=== PATIENT | female | born 1980 | race Caucasian/White ===

== ENCOUNTER 2017-03-25 19:19 | Emergency (ER) | payer MEDICAID ==
--- NOTE | 2017-03-25 21:01 | EDM.PDOCBH ---
ED HPI GENERAL MEDICAL PROBLEM - General Chief Complaint: Behavioral/Psych Stated Complaint: MENTAL CHECK Time Seen by Provider: 03/25/17 19:51 Source of Information: Reports: Patient History Limitations: Reports: No Limitations - History of Present Illness INITIAL COMMENTS - FREE TEXT/NARRATIVE: Patient is a 36-year-old female presents ED for mental health evaluation. Patient has been treated by Dr. chambers for depression, anxiety, PTSD, and mood disorders. Patient states they're currently adjusting her medications and she's feeling overwhelmed with anxiety, sadness, and depression. Patient states she feels like giving up on life. She has alot of recent stress in her life including: loss of job, evicted from her residence, and poor family support. She denies any suicidal ideations. - Related Data Allergies Allergy/AdvReac Type Severity Reaction Status Date / Time Penicillins Allergy Severe Rash Verified 03/25/17 19:31 cefazolin sodium [From Anc] Allergy Rash Verified 03/25/17 19:31 Home Meds: Home Meds Albuterol Sulfate 0.63 mg IH ASDIRECTED PRN 02/22/14 [History] Amitriptyline [Elavil] 50 mg PO BEDTIME 02/22/14 [History] Montelukast [Singulair] 10 mg PO DAILY 02/22/14 [History] levETIRAcetam [Keppra] 1,000 mg PO DAILY 09/10/14 [History] ClonazePAM [KlonoPIN] 1 tab PO TID PRN 04/15/16 [History] Mometasone/Formoterol [Dulera 100-5 MCG] 2 puff IH BIDRT 07/03/16 [History] Vortioxetine Hydrobromide [Brintellix] 10 mg PO DAILY 03/25/17 [History] levETIRAcetam [Keppra] 1,500 mg PO BEDTIME 03/25/17 [History] Past Medical History HEENT History: Reports: Allergic Rhinitis Respiratory History: Reports: Asthma Gastrointestinal History: Reports: Cholelithiasis 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: Neurological History: Reports: Migraines, Seizure Psychiatric History: Reports: Anxiety, Depression, Mood Swings, PTSD Hematologic History: Reports: Blood Transfusion(s) - Infectious Disease History Infectious Disease History: Reports: Chicken Pox - Past Surgical History GI Surgical History: Reports: Cholecystectomy Female Surgical History: Reports: Tubal Ligation, Other (See Below) Other Female Surgeries/Procedures: IUD placement (mirena) Social & Family History - Family History Family Medical History: Noncontributory - Tobacco Use Smoking Status *Q: Former Smoker Years of Tobacco use: 14 Used Tobacco, but Quit: No Month Tobacco Last Used: 5 YEARS AGO Second Hand Smoke Exposure: No - Caffeine Use Caffeine Use: Reports: Soda - Alcohol Use Days Per Week of Alcohol Use: 0 Number of Drinks Per Day: 0 Total Drinks Per Week: 0 - Recreational Drug Use Recreational Drug Use: Yes Drug Use in Last 12 Months: No Recreational Drug Type: Reports: Marijuana/Hashish Other Recreational Drug Type: used marijuana over a year ago, not recent Recreational Drug Use Frequency: Not Used In Over 6 Months ED ROS GENERAL - Review of Systems Review Of Systems: See Below Constitutional: Reports: No Symptoms Respiratory: Reports: No Symptoms Cardiovascular: Reports: No Symptoms GI/Abdominal: Reports: No Symptoms Neurological: Reports: Headache Psychiatric: Reports: Anxiety, Depression. Denies: Hallucinations, Homicidal Ideation, Mood Lability, Suicidal Ideation ED EXAM, BEHAVIORAL HEALTH - Physical Exam Exam: See Below Exam Limited By: No Limitations General Appearance: Alert, WD/WN, Anxious, Other (Tearful) Ears: Hearing Grossly Normal Nose: Normal Inspection Throat/Mouth: Normal Voice, No Airway Compromise Neck: Normal Inspection, Supple Respiratory/Chest: No Respiratory Distress, No Accessory Muscle Use Cardiovascular: Normal Peripheral Pulses, Regular Rate, Rhythm Extremities: Normal Inspection Neurological: Alert, Normal Mood/Affect, CN II-XII Intact, Normal Cognition, No Motor/Sensory Deficits, Oriented x 3 Psychiatric: Alert, Normal Affect, Normal Cognition, Oriented, Depressed Mood, Tearful. No: Agitated, Homicidal Thoughts, Congregation Delusions, Suicidal Plan, Suicidal Thoughts, Tangential Thoughts, Auditory Hallucinations, Visual Hallucinations, Grandiose Thoughts, Pressured Speech, Paranoid Thoughts COURSE, BEHAVIORAL HEALTH COMP - Course Vital Signs: Last Vital Signs Temp 97.8 F 03/25/17 19:28 Pulse 79 03/25/17 19:28 Resp 18 03/25/17 19:28 BP 147/91 H 03/25/17 19:28 Pulse Ox 98 03/25/17 19:28 Re-Assessment/Re-Exam: Spoke with Dr. Schwab. He agreed coming off the Effexor and starting the new antidepressant along with decreasing her clonazepam to be a possible reason of her worsening symptoms. In addition to all the external issues taken place including: Loss of job, poor family support, nobody to talk to, and eviction. Suggested while decreasing the Effexor to the new antidepressant would hold off on decrease in her Klonopin dosage. Suggest tapering back this process significantly to decrease any discontinuation syndrome that may arise. Patient agrees with this and will continue with stopping the Effexor and continue taking the Brintellix as prescribed. States she takes of her medications at HS so that she can be functional during the day. I told her to stop taking the Klonopin all at once in the evening and take all her medications as she is suppose too. She understands this and agrees. Departure - Departure Time of Disposition: 22:02 Disposition: Home, Self-Care 01 Condition: Good Clinical Impression: Depressive disorder, Anxiety - Discharge Information Instructions: Dysphoria Referrals: Rachna Guzmán NP [Primary Care Provider] - Best Schwab MD [Physician] - Bronwyn Matthews NP [Nurse Practitioner] - Forms: ED Department Discharge Additional Instructions: Take all your home medications as prescribed. Follow-up with your PCP tomorrow morning as scheduled. Make an appt with Dr. Schwab or Lu Hitchcock who will see you in their clinic for a second opinion if you wish. Refrain from smoking marijuana. Do not utilize any alcohol or other recreational drugs. Return back to the ED if you develop any new or worsening symptoms.
[2017-03-26 00:19] VITALS: BP 147/91
== END 2017-03-25 22:17 | disposition home or self-care (01) ==
LOC: JD.ED 19:19
DX: F41.8 Other specified anxiety disorders (principal); J45.909 Unspecified asthma, uncomplicated; Z90.49 Acquired absence of other specified parts of digestive tract; Z88.0 Allergy status to penicillin; Z88.1 Allergy status to other antibiotic agents; Z79.899 Other long term (current) drug therapy; Z87.891 Personal history of nicotine dependence
CPT/HCPCS: 99283; 99284

== ENCOUNTER 2019-06-16 09:45 | Emergency (ER) | payer MEDICAID ==
[2019-06-16 10:01] VITALS: BP 129/85; PULSE 70
[2019-06-16] MEDS ORDERED: Famotidine 20 MG/2 ML SDV IVPUSH ONE (10:31)
[2019-06-16] MEDS ORDERED: Sodium Chloride 0.9% 10 ML Syringe FLUSH PRN (10:31)
[2019-06-16] MEDS ORDERED: Ondansetron 4 MG/2 ML SDV IVPUSH ONE (10:31)
[2019-06-16] MEDS ORDERED: HYDROmorphone 0.5 MG/0.5 ML Syringe IVPUSH ONE (10:32)
[2019-06-16] MEDS ORDERED: Sodium Chloride 0.9% 1,000 ML IV SCH (10:45)
--- NOTE | 2019-06-16 11:54 | EDM.PDOC ---
ED HPI GENERAL MEDICAL PROBLEM - General Chief Complaint: Abdominal Pain Stated Complaint: VOMITING AND UNABLE TO KEEP MEDS DOWN Time Seen by Provider: 06/16/19 10:15 Source of Information: Reports: Patient, RN Notes Reviewed - History of Present Illness INITIAL COMMENTS - FREE TEXT/NARRATIVE: 38-year-old female with onset of nausea vomiting 2-3 days ago. Started with vomiting and then also started having severe watery diarrhea. She continues to have nausea this morning, no further vomiting today. She still is having watery diarrhea. She does have history of prior brain surgery many years ago, does have history of postoperative seizures. She has not been able to keep meds down for the last 2 days that is a huge concern for her and her at this time. Major abdominal pain at this time. No chest pain or difficulty breathing. She has had some chills but no fever. No one else ill at home at this time. Abdomen Pain Score (Numeric/FACES): 6 - Related Data Allergies Allergy/AdvReac Type Severity Reaction Status Date / Time Penicillins Allergy Severe Rash Verified 06/16/19 10:01 cefazolin sodium [From Anc] Allergy Rash Verified 06/16/19 10:01 Home Meds: Home Meds Montelukast [Singulair] 10 mg PO DAILY 02/22/14 [History] levETIRAcetam [Keppra] 1,000 mg PO DAILY 09/10/14 [History] ClonazePAM [KlonoPIN] 1 tab PO TID PRN 04/15/16 [History] Mometasone/Formoterol [Dulera 100-5 MCG] 2 puff IH BIDRT 07/03/16 [History] levETIRAcetam [Keppra] 1,500 mg PO BEDTIME 03/25/17 [History] Benztropine [Cogentin] 1 mg PO DAILY 06/16/19 [History] Ondansetron [Zofran ODT] 4 mg PO Q8HR PRN #7 tab.dis 06/16/19 [Rx] QUEtiapine [SEROquel] 100 mg PO DAILY 06/16/19 [History] lamoTRIgine [Lamotrigine] 100 mg PO DAILY 06/16/19 [History] oxyCODONE HCl/Acetaminophen [Oxycodone-Acetaminophen 10-300] 1 tab PO Q4H PRN [History] Past Medical History HEENT History: Reports: Allergic Rhinitis Respiratory History: Reports: Asthma Gastrointestinal History: Reports: Cholelithiasis 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: Neurological History: Reports: Migraines, Seizure Psychiatric History: Reports: Anxiety, Depression, Mood Swings, PTSD Hematologic History: Reports: Blood Transfusion(s) - Infectious Disease History Infectious Disease History: Reports: Chicken Pox - Past Surgical History GI Surgical History: Reports: Cholecystectomy Female Surgical History: Reports: Tubal Ligation, Other (See Below) Other Female Surgeries/Procedures: IUD placement (mirena) Social & Family History - Family History Family Medical History: Noncontributory - Tobacco Use Smoking Status *Q: Former Smoker Used Tobacco, but Quit: Yes Month/Year Tobacco Last Used: 10 yrs - Caffeine Use Caffeine Use: Reports: Soda ED ROS GENERAL - Review of Systems Review Of Systems: See Below Constitutional: Denies: Fever, Chills HEENT: Denies: Throat Pain Respiratory: Denies: Shortness of Breath Cardiovascular: Denies: Chest Pain GI/Abdominal: Reports: Abdominal Pain, Diarrhea, Nausea (Gone), Vomiting. Denies: Hematochezia, Melena Musculoskeletal: Reports: No Symptoms Skin: Reports: No Symptoms Neurological: Reports: Dizziness, Headache ED EXAM, GI/ABD - Physical Exam Exam: See Below General Appearance: Alert, Mild Distress Eyes: Bilateral: Normal Appearance Throat/Mouth: Normal Inspection, Normal Oropharynx Head: No: Facial Swelling Neck: Supple Respiratory/Chest: No Respiratory Distress, Lungs Clear, Normal Breath Sounds Cardiovascular: Regular Rate, Rhythm GI/Abdominal Exam: Soft, Tender (Mild mid abdominal tenderness). No: Guarding, Rebound Extremities: Normal Inspection, Normal Range of Motion Neurological: Alert, Oriented, No Motor/Sensory Deficits Skin Exam: Warm, Dry, Normal Color Course - Vital Signs Last Recorded V/S: Last Vital Signs Temp 98.3 F 06/16/19 09:58 Pulse 70 06/16/19 09:58 Resp 16 06/16/19 09:58 BP 129/85 06/16/19 09:58 Pulse Ox 93 L 06/16/19 09:58 - Orders/Labs/Meds Orders: Active Orders 24 hr Category Date Time Status Peripheral IV Care [RC] . DIRECTED Care 10/19/19 10:32 Active Peripheral IV Insertion Adult [OM.PC] Stat Oth 06/16/19 10:31 Ordered Labs: Laboratory Tests 06/16/19 06/16/19 Range/Units 10:00 10:00 WBC 8.98 (3.98-10.04) K/mm3 RBC 5.02 (3.98-5.22) M/mm3 Hgb 15.6 D (11.2-15.7) gm/dl Hct 45.2 H (34.1-44.9) % MCV 90.0 (79.4-94.8) fl MCH 31.1 (25.6-32.2) pg MCHC 34.5 (32.2-35.5) g/dl RDW Std Deviation 39.8 (36.4-46.3) fL Plt Count 282 (182-369) K/mm3 MPV 10.9 (9.4-12.3) fl Neut % (Auto) 68.9 (34.0-71.1) % Lymph % (Auto) 22.7 (19.3-51.7) % [place] % (Auto) 6.3 (4.7-12.5) % Eos % (Auto) 1.7 (0.7-5.8) Baso % (Auto) 0.2 (0.1-1.2) % Neut # (Auto) 6.18 H (1.56-6.13) K/mm3 Lymph # (Auto) 2.04 (1.18-3.74) K/mm3 [place] # (Auto) 0.57 H (0.24-0.36) K/mm3 Eos # (Auto) 0.15 (0.04-0.36) K/mm3 Baso # (Auto) 0.02 (0.01-0.08) K/mm3 Sodium 136 (136-145) mEq/L Potassium 3.8 (3.5-5.1) mEq/L Chloride 103 (98-107) mEq/L Carbon Dioxide 23 (21-32) mEq/L Anion Gap 13.8 (5-15) BUN 17 (7-18) mg/dL Creatinine 1.0 (0.55-1.02) mg/dL Est Cr Clr Drug Dosing 64.58 mL/min Estimated GFR (MDRD) > 60 (>60) mL/min BUN/Creatinine Ratio 17.0 (14-18) Glucose 107 H (74-106) mg/dL Calcium 9.1 (8.5-10.1) mg/dL Total Bilirubin 0.5 (0.2-1.0) mg/dL AST 17 (15-37) U/L ALT 28 (14-59) U/L Alkaline Phosphatase 98 (46-116) U/L Total Protein 8.1 (6.4-8.2) g/dl Albumin 3.9 (3.4-5.0) g/dl Globulin 4.2 gm/dL Albumin/Globulin Ratio 0.9 L (1-2) Lipase 70 L (73-393) U/L Meds: Medications Discontinued Medications Generic Name Dose Route Start Last Admin Trade Name Freq PRN Reason Stop Dose Admin Famotidine 20 mg 06/16/19 10:31 06/16/19 10:45 Pepcid IVPUSH 06/16/19 10:32 20 mg ONETIME ONE Administration Hydromorphone HCl 0.5 mg 06/16/19 10:32 06/16/19 10:46 Dilaudid IVPUSH 06/16/19 10:33 0.5 mg ONETIME ONE Administration Sodium Chloride 1,000 mls @ 999 mls/hr 06/16/19 10:45 06/16/19 10:44 Normal Saline IV 999 mls/hr ONETIME KIANA Administration Ondansetron HCl 4 mg 06/16/19 10:31 06/16/19 10:44 Zofran IVPUSH 06/16/19 10:32 4 mg ONETIME ONE Administration Sodium Chloride 10 ml 06/16/19 10:31 06/16/19 10:47 Saline Flush FLUSH 10 ml ASDIRECTED PRN Administration Keep Vein Open - Re-Assessments/Exams Free Text/Narrative Re-Assessment/Exam: 06/16/19 13:18 Labs did come back relatively normal. She does feel much better after IV fluid, IV Zofran Pepcid and 0.5 mg Dilaudid. Discharge instructions as documented. Departure - Departure Time of Disposition: 11:53 Disposition: Home, Self-Care 01 Condition: Fair Clinical Impression: Abdominal pain Qualifiers: Abdominal location: upper abdomen, unspecified Qualified Code(s): R10.10 - Upper abdominal pain, unspecified Vomiting Qualifiers: Vomiting type: unspecified Vomiting Intractability: non-intractable Nausea presence: with nausea Qualified Code(s): R11.2 - Nausea with vomiting, unspecified Diarrhea Qualifiers: Diarrhea type: unspecified type Qualified Code(s): R19.7 - Diarrhea, unspecified - Discharge Information Prescriptions: Ondansetron [Zofran ODT] 4 mg PO Q8HR PRN #7 tab.dis PRN Reason: Nausea/Vomiting Instructions: Abdominal Pain, Adult, [id number] Referrals: Rachna Guzmán FOOD ANALYST [Primary Care Provider] - Forms: ED Department Discharge Additional Instructions: Clear liquids until this evening, then very careful bland diet as tolerated. Try take your regular medications as prescribed. Zofran 4 mg ODT if needed for further nausea or vomiting. Follow-up clinic as needed if not getting back to normal within 1-2 days as expected, return to ED as needed if symptoms worsening in any way. - My Orders Last 24 Hours: My Active Orders 06/16/19 10:31 Peripheral IV Insertion Adult [OM.PC] Stat 06/16/19 10:32 Peripheral IV Care [RC] . DIRECTED - Assessment/Plan Last 24 Hours: My Active Orders 06/16/19 10:31 Peripheral IV Insertion Adult [OM.PC] Stat 06/16/19 10:32 Peripheral IV Care [RC] . DIRECTED
== END 2019-06-16 12:04 | disposition home or self-care (01) ==
LOC: JD.ED 09:45
DX: R10.10 Upper abdominal pain, unspecified (principal); R11.2 Nausea with vomiting, unspecified; R19.7 Diarrhea, unspecified; J45.909 Unspecified asthma, uncomplicated; F41.9 Anxiety disorder, unspecified; F32.9 Major depressive disorder, single episode, unspecified; Z88.0 Allergy status to penicillin; Z88.1 Allergy status to other antibiotic agents; Z79.51 Long term (current) use of inhaled steroids; Z79.899 Other long term (current) drug therapy; Z87.891 Personal history of nicotine dependence
CPT/HCPCS: 36415; 80053; 83690; 85025; 96361; 96374; 96375; 99284; J1170; J2405; J3490; J7040

== ENCOUNTER 2020-03-11 10:21 | Emergency (ER) | payer MEDICAID ==
--- NOTE | 2020-03-11 11:33 | EDM.PDOC ---
ED HPI GENERAL MEDICAL PROBLEM - General Chief Complaint: Lower Extremity Injury/Pain Stated Complaint: R ANKLE PAIN Time Seen by Provider: 03/11/20 11:07 Source of Information: Reports: Patient History Limitations: Reports: No Limitations - History of Present Illness INITIAL COMMENTS - FREE TEXT/NARRATIVE: Patient is a 39-year-old female who presents to the emergency department with complaints of right ankle pain. States she was standing on the arm of her couch trying to open her curtains and her ankle rolled inward causing her to fall. She has had pain to the ankle since that time. She has been able to bear weight, however states it is painful. Denies any previous injury to this extremity. Right Ankle Pain Score (Numeric/FACES): 10 - Related Data Allergies Allergy/AdvReac Type Severity Reaction Status Date / Time Penicillins Allergy Severe Rash Verified 03/11/20 10:49 cefazolin sodium [From Anc] Allergy Rash Verified 03/11/20 10:49 Home Meds: Home Meds Montelukast [Singulair] 10 mg PO DAILY 02/22/14 [History] levETIRAcetam [Keppra] 1,000 mg PO DAILY 09/10/14 [History] ClonazePAM [KlonoPIN] 1 tab PO TID PRN 04/15/16 [History] Mometasone/Formoterol [Dulera 100-5 MCG] 2 puff IH BIDRT 07/03/16 [History] Benztropine [Cogentin] 1 mg PO DAILY 06/16/19 [History] QUEtiapine [SEROquel] 700 mg PO DAILY 06/16/19 [History] lamoTRIgine [Lamotrigine] 100 mg PO DAILY 06/16/19 [History] oxyCODONE HCl/Acetaminophen [Oxycodone-Acetaminophen 10-300] 1 tab PO Q4H PRN 06/16/19 [History] Past Medical History HEENT History: Reports: Allergic Rhinitis Respiratory History: Reports: Asthma Gastrointestinal History: Reports: Cholelithiasis 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: Neurological History: Reports: Migraines, Seizure Psychiatric History: Reports: Anxiety, Bipolar, Depression, Mood Swings, PTSD, Other (See Below) Other Psychiatric History: Borderline personality Hematologic History: Reports: Blood Transfusion(s) - Infectious Disease History Infectious Disease History: Reports: Chicken Pox - Past Surgical History GI Surgical History: Reports: Cholecystectomy Female Surgical History: Reports: Tubal Ligation, Other (See Below) Other Female Surgeries/Procedures: IUD placement (mirena) Social & Family History - Family History Family Medical History: Noncontributory - Tobacco Use Used Tobacco, but Quit: Yes Month/Year Tobacco Last Used: 2009 Tobacco Use Comment: Occassionally Vape - Caffeine Use Caffeine Use: Reports: Soda - Recreational Drug Use Recreational Drug Use: Yes Drug Use in Last 12 Months: Yes Recreational Drug Type: Reports: Marijuana/Hashish Recreational Drug Use Frequency: Daily Review of Systems - Review of Systems Review Of Systems: Comprehensive ROS is negative, except as noted in HPI. ED EXAM, GENERAL - Physical Exam Exam: See Below Exam Limited By: No Limitations General Appearance: Alert, WD/WN, No Apparent Distress Respiratory/Chest: No Respiratory Distress, Lungs Clear, Normal Breath Sounds, No Accessory Muscle Use, Chest Non-Tender Cardiovascular: Normal Peripheral Pulses, Regular Rate, Rhythm, No Edema, No Gallop, No JVD, No Murmur, No Rub Extremities: Other (Mild tenderness to the lateral malleoli are area of the right ankle. No obvious swelling, ecchymosis, or deformity.) Neurological: Alert, Oriented, CN II-XII Intact, Normal Cognition, Normal Gait, Normal Reflexes, No Motor/Sensory Deficits Psychiatric: Normal Affect, Normal Mood Skin Exam: Warm, Dry, Intact, Normal Color, No Rash Course - Vital Signs Last Recorded V/S: Last Vital Signs Temp 97.7 F 03/11/20 10:42 Pulse 88 03/11/20 10:42 Resp 20 03/11/20 10:42 BP 129/86 03/11/20 10:42 Pulse Ox 96 03/11/20 10:42 - Orders/Labs/Meds Orders: Active Orders 24 hr Category Date Time Status Ankle Min 3V Rt [CR] Stat Exams 03/11/20 11:11 Taken - Re-Assessments/Exams Free Text/Narrative Re-Assessment/Exam: 03/11/20 11:31 X-rays of the right ankle show no fracture. Patient has been able to walk on it, however as it is painful. We will provide her with an air splint. Discussed the option of crutches and she declined. Advised that if she continues to have pain after couple weeks, she should follow-up in the clinic. Discharge instructions as documented. Departure - Departure Time of Disposition: 11:32 Disposition: Home, Self-Care 01 Condition: Good Clinical Impression: Sprain of ankle, right Qualifiers: Encounter type: initial encounter Involved ligament of ankle: unspecified ligament Qualified Code(s): S93.401A - Sprain of unspecified ligament of right ankle, initial encounter - Discharge Information *PRESCRIPTION DRUG MONITORING PROGRAM REVIEWED*: No *COPY OF PRESCRIPTION DRUG MONITORING REPORT IN PATIENT ELIGIO: No Instructions: Ankle Sprain, [id number] Referrals: Rachna Guzmán NP [Primary Care Provider] - Additional Instructions: You were seen in the emergency department for pain to your right ankle after rolling it. X-rays were done and showed no fracture. Is like you have sprained your ankle. You have been provided with an air splint. Wear this for the next few days for comfort. You may continue to walk, however I recommend limiting the amount of walking as this will likely aggravate your ankle. Ice and elevate when at rest. Tylenol ibuprofen as needed for pain. If you continue to have pain after couple weeks, I would recommend that you follow-up in the clinic. Return to the ER as needed. Sepsis Event Note (ED) - Evaluation Sepsis Screening Result: No Definite Risk - Focused Exam Vital Signs: Vital Signs Temp Pulse Resp BP Pulse Ox 03/11/20 10:42 97.7 F 88 20 129/86 96 - My Orders Last 24 Hours: My Active Orders 03/11/20 11:11 Ankle Min 3V Rt [CR] Stat - Assessment/Plan Last 24 Hours: My Active Orders 03/11/20 11:11 Ankle Min 3V Rt [CR] Stat
[2020-03-11 11:56] VITALS: BP 111/80; PULSE 81
--- NOTE | 2020-03-11 16:07 | CR ---
Right ankle: 4 views of the right ankle were obtained. Comparison: No prior ankle study. Ankle mortise is symmetric. No fracture, dislocation or other bony abnormality is appreciated. Impression: 1. No abnormality is appreciated on right ankle exam. Diagnostic code #1 This report was dictated in MDT
== END 2020-03-11 11:51 | disposition home or self-care (01) ==
LOC: JD.ED 10:21
DX: S93.401A Sprain of unspecified ligament of right ankle, initial encounter (principal); J45.909 Unspecified asthma, uncomplicated; F41.9 Anxiety disorder, unspecified; F31.9 Bipolar disorder, unspecified; R56.9 Unspecified convulsions; Z87.891 Personal history of nicotine dependence; Z79.899 Other long term (current) drug therapy; Z88.1 Allergy status to other antibiotic agents; Z88.0 Allergy status to penicillin; X50.1XXA Overexertion from prolonged static or awkward postures, initial encounter
CPT/HCPCS: 73610-26-RT; 73610-RT; 99282; 99283-25

== ENCOUNTER 2020-06-20 08:47 | Emergency (ER) | payer MEDICAID ==
[2020-06-20 08:56] VITALS: BP 109/80; PULSE 79
[2020-06-20] MEDS ORDERED: Ketorolac 30 MG/ML SDV IM ONE (09:19)
[2020-06-20] MEDS ORDERED: Magnesium Citrate Solution 296 ML Bottle PO ONE (11:43)
--- NOTE | 2020-06-20 11:43 | EDM.PDOC ---
ED HPI GENERAL MEDICAL PROBLEM - General Chief Complaint: Abdominal Pain Stated Complaint: [facility] Time Seen by Provider: 06/20/20 09:09 Source of Information: Reports: Patient, RN Notes Reviewed - History of Present Illness INITIAL COMMENTS - FREE TEXT/NARRATIVE: 39 yr old female with sudden onset of abd pain about 1 hr ago. Sharp upper mid abd cramping, now better at time of exam. Hx of constipation. No BM for about 4 days. No vomiting or diarrhea. Abdominal Pain Score (Numeric/FACES): 10 - Related Data Allergies Allergy/AdvReac Type Severity Reaction Status Date / Time cefazolin sodium [From [facility] Allergy Severe Rash Verified 06/20/20 08:57 Penicillins Allergy Severe Rash Verified 03/11/20 10:49 Home Meds: Home Meds Montelukast [Singulair] 10 mg PO DAILY 02/22/14 [History] levETIRAcetam [Keppra] 1,000 mg PO DAILY 09/10/14 [History] ClonazePAM [KlonoPIN] 1 mg PO TID PRN 04/15/16 [History] Mometasone/Formoterol [Dulera 100-5 MCG] 2 puff IH BIDRT 07/03/16 [History] Benztropine [Cogentin] 2 mg PO DAILY 06/16/19 [History] QUEtiapine [SEROquel] 700 mg PO DAILY 06/16/19 [History] lamoTRIgine [Lamotrigine] 200 mg PO DAILY 06/16/19 [History] oxyCODONE HCl/Acetaminophen [Oxycodone-Acetaminophen 10-300] 1 tab PO Q4H PRN 06/16/19 [History] Albuterol Sulfate [Proair Hfa] 1 puff INH DAILY PRN 06/20/20 [History] Linaclotide [Linzess] 290 mcg PO DAILY 06/20/20 [History] Meloxicam 15 mg PO DAILY 06/20/20 [History] Past Medical History HEENT History: Reports: Allergic Rhinitis Respiratory History: Reports: Asthma Gastrointestinal History: Reports: Cholelithiasis [employer] History: Reports: Neurological History: Reports: Migraines, Seizure Psychiatric History: Reports: Anxiety, Bipolar, Depression, Mood Swings, PTSD, Other (See Below) Other Psychiatric History: Borderline personality Hematologic History: Reports: Blood Transfusion(s) - Infectious Disease History Infectious Disease History: Reports: Chicken Pox - Past Surgical History GI Surgical History: Reports: Cholecystectomy Female Surgical History: Reports: Tubal Ligation, Other (See Below) Other Female Surgeries/Procedures: IUD placement (mirena) Social & Family History - Family History Family Medical History: Noncontributory - Tobacco Use Tobacco Use Status *Q: Never Tobacco User - Caffeine Use Caffeine Use: Reports: Soda - Recreational Drug Use Recreational Drug Use: Yes Recreational Drug Type: Reports: Marijuana/Hashish ED ROS GENERAL - Review of Systems Review Of Systems: See Below Constitutional: Denies: Fever, Chills, Diaphoresis HEENT: Reports: No Symptoms Respiratory: Denies: Shortness of Breath Cardiovascular: Denies: Chest Pain GI/Abdominal: Reports: Abdominal Pain, Constipation. Denies: Diarrhea, Hematochezia, Melena, Nausea, Vomiting Musculoskeletal: Denies: Back Pain Skin: Reports: No Symptoms Neurological: Reports: No Symptoms ED EXAM, GI/ABD - Physical Exam Exam: See Below General Appearance: Alert, No Apparent Distress Head: Atraumatic Neck: Supple Respiratory/Chest: No Respiratory Distress, Lungs Clear, Normal Breath Sounds Cardiovascular: Regular Rate, Rhythm GI/Abdominal Exam: Soft, Other (mild upper mid abd tenderness) Back Exam: No: CVA Tenderness (L), CVA Tenderness (R) Neurological: Alert, Oriented, No Motor/Sensory Deficits Skin Exam: Warm, Dry, Normal Color Course - Vital Signs Last Recorded V/S: Last Vital Signs Temp 97.4 F 06/20/20 08:52 Pulse 79 06/20/20 08:52 Resp 18 06/20/20 08:52 BP 109/80 06/20/20 08:52 Pulse Ox 97 06/20/20 08:52 - Orders/Labs/Meds Orders: Active Orders 24 hr Category Date Time Status Abdomen 2V AP Flat Upright [CR] Stat Exams 06/20/20 09:19 Taken Labs: Laboratory Tests 06/20/20 06/20/20 Range/Units 09:45 09:45 WBC 5.29 (3.98-10.04) K/mm3 RBC 4.11 (3.98-5.22) M/mm3 Hgb 12.9 D (11.2-15.7) gm/dl Hct 39.9 (34.1-44.9) % MCV 97.1 H D (79.4-94.8) fl MCH 31.4 (25.6-32.2) pg MCHC 32.3 (32.2-35.5) g/dl RDW Std Deviation 45.1 (36.4-46.3) fL Plt Count 211 (182-369) K/mm3 MPV 10.4 (9.4-12.3) fl Neut % (Auto) 58.6 (34.0-71.1) % Lymph % (Auto) 28.7 (19.3-51.7) % [place] % (Auto) 7.8 (4.7-12.5) % Eos % (Auto) 4.5 (0.7-5.8) Baso % (Auto) 0.4 (0.1-1.2) % Neut # (Auto) 3.10 (1.56-6.13) K/mm3 Lymph # (Auto) 1.52 (1.18-3.74) K/mm3 Gosper # (Auto) 0.41 H (0.24-0.36) K/mm3 Eos # (Auto) 0.24 (0.04-0.36) K/mm3 Baso # (Auto) 0.02 (0.01-0.08) K/mm3 Sodium 139 (136-145) mEq/L Potassium 3.6 (3.5-5.1) mEq/L Chloride 105 (98-107) mEq/L Carbon Dioxide 25 (21-32) mEq/L Anion Gap 12.6 (5-15) BUN 23 H (7-18) mg/dL Creatinine 0.9 (0.55-1.02) mg/dL Est Cr Clr Drug Dosing 71.03 mL/min Estimated GFR (MDRD) > 60 (>60) mL/min BUN/Creatinine Ratio 25.6 H (14-18) Glucose 96 (74-106) mg/dL Calcium 8.7 (8.5-10.1) mg/dL Total Bilirubin 0.3 (0.2-1.0) mg/dL AST 40 H (15-37) U/L ALT 40 (14-59) U/L Alkaline Phosphatase 97 (46-116) U/L Total Protein 6.7 (6.4-8.2) g/dl Albumin 3.3 L (3.4-5.0) g/dl Globulin 3.4 gm/dL Albumin/Globulin Ratio 1.0 (1-2) Meds: Medications Discontinued Medications Generic Name Dose Route Start Last Admin Trade Name Anh PRN Reason Stop Dose Admin Ketorolac Tromethamine 30 mg 06/20/20 09:19 06/20/20 10:03 Toradol IM 06/20/20 09:20 30 mg ONETIME ONE Administration Magnesium Citrate 296 ml 06/20/20 11:43 Citrate Of Magnesia PO 06/20/20 11:44 ONETIME ONE - Re-Assessments/Exams Free Text/Narrative Re-Assessment/Exam: 06/20/20 13:08 labs nl, abd Xrays show quite definite increased stool in colon. Discharge instr. as documented. Departure - Departure Time of Disposition: 11:43 Disposition: Home, Self-Care 01 Condition: Good Clinical Impression: Constipation Abdominal pain Qualifiers: Abdominal location: upper abdomen, unspecified Qualified Code(s): R10.10 - Upper abdominal pain, unspecified - Discharge Information Instructions: Constipation, Adult, [id number], Abdominal Pain, Adult, Eas y-to-Read Referrals: Rachna Guzmán NP [Primary Care Provider] - Forms: ED Department Discharge Additional Instructions: Clear liquids until later this afternoon, than careful bland diet as tolerated. Mag citrate, drink 1/2 bottle when you get home, drink the remainder if no BM by this evening. Use other constipation meds as needed. Drink plenty of water. Follow up clinic as needed, return to ED as needed. Sepsis Event Note (ED) - Evaluation Sepsis Screening Result: No Definite Risk - Focused Exam Vital Signs: Vital Signs Temp Pulse Resp BP Pulse Ox 06/20/20 08:52 97.4 F 79 18 109/80 97 - My Orders Last 24 Hours: My Active Orders 06/20/20 09:19 Abdomen 2V AP Flat Upright [CR] Stat - Assessment/Plan Last 24 Hours: My Active Orders 06/20/20 09:19 Abdomen 2V AP Flat Upright [CR] Stat
== END 2020-06-20 12:43 | disposition home or self-care (01) ==
LOC: JD.ED 08:47
DX: K59.00 Constipation, unspecified (principal); R10.10 Upper abdominal pain, unspecified; J45.909 Unspecified asthma, uncomplicated; F41.9 Anxiety disorder, unspecified; F31.9 Bipolar disorder, unspecified; Z88.0 Allergy status to penicillin; Z88.1 Allergy status to other antibiotic agents; Z90.49 Acquired absence of other specified parts of digestive tract; Z98.51 Tubal ligation status; Z79.899 Other long term (current) drug therapy
CPT/HCPCS: 36415; 74019; 80053; 85025; 96374; 99284; A9270; J1885; 99283

== ENCOUNTER 2021-06-27 16:18 | Emergency (ER) | payer MEDICAID ==
[2021-06-27] MEDS ORDERED: Dextrose 5%-0.9% NaCl 1,000 ML IV SCH ×2 (16:45→20:00)
[2021-06-27] MEDS ORDERED: LORazepam 2 MG/ML SDV IVPUSH ONE ×2 (16:47→22:01)
--- NOTE | 2021-06-27 16:51 | EDM.PDOCBH ---
<Atif Rosales - Last Filed: 06/28/21 08:09> ED HPI GENERAL MEDICAL PROBLEM - General Chief Complaint: Behavioral/Psych Stated Complaint: VOMITING Time Seen by Provider: 06/27/21 16:43 - Related Data Allergies Allergy/AdvReac Type Severity Reaction Status Date / Time cefazolin sodium [From Anc] Allergy Severe Rash Verified 06/27/21 16:53 Penicillins Allergy Severe Rash Verified 06/27/21 16:53 Home Meds: Home Meds Montelukast [Singulair] 10 mg PO DAILY 02/22/14 [History] levETIRAcetam [Keppra] 100 mg PO BID 09/10/14 [History] ClonazePAM [KlonoPIN] 2 mg PO BEDTIME 04/15/16 [History] Benztropine [Cogentin] 2 mg PO BEDTIME 06/16/19 [History] lamoTRIgine [Lamotrigine] 200 mg PO DAILY 06/16/19 [History] oxyCODONE HCl/Acetaminophen [Oxycodone-Acetaminophen 10-300] 1 tab PO Q6H PRN 06/16/19 [History] Albuterol Sulfate [Proair Hfa] 1 puff INH DAILY PRN 06/20/20 [History] Celecoxib [CeleBREX] 200 mg PO DAILY 06/27/21 [History] Lubiprostone [Amitiza] 24 mcg PO BIDMEALS 06/27/21 [History] lamoTRIgine [Lamotrigine] 100 mg PO BEDTIME 06/27/21 [History] levETIRAcetam [Keppra] 250 mg PO BEDTIME 06/27/21 [History] #2 Interpretation EKG Date: 06/28/21 Rhythm: NSR Rate (Beats/Min): 93 Ringgold: Normal P-Wave: Present QRS: Other (Voltage) ST-T: Other (Probable repolarization abnormalities) QT: Prolonged Comparison: Change From Previous EKG (Less ST depression compared to the earlier tracing) EKG Interpretation Comments: Abnormal COURSE, BEHAVIORAL HEALTH COMP - Course Medical Clearance: 06/27/21 20:57 Assumed care at change of shift the patient is given a trying to sleep this off. It is suspected she inadvertently took too much of her clonazepam. 06/27/21 22:35 Patient became quite agitated we attempted 1 mg/kg of ketamine over 3 minutes and this does not seem to help we will repeat this dose. 06/28/21 05:37 Second troponin was negative a while ago I did check a EKG as she had ST depression in the inferior leads and this appears to have improved somewhat. Basic metabolic panel is pending with follow-up on her hypokalemia he did receive 60 mEq IV. 06/28/21 08:09 Patient's potassium is up to 3.5 patient has done well since her episode of agitation. At this time is change of shift further care and disposition per Dr. Shaw Departure - Departure Disposition: DC/Tfer to Psych Hosp/Unit 65 Clinical Impression: Psychosis Bipolar disorder Qualifiers: Active/Remission status: currently active Current episode severity: moderate - Discharge Information Referrals: PCP,None [Primary Care Provider] - Forms: ED Department Discharge <Gilberto Rivas - Last Filed: 06/28/21 23:11> COURSE, BEHAVIORAL HEALTH COMP - Course Medical Clearance: 06/28/21 10:35 Assuming care of the patient from Dr. Shaw. I have read through the chart, and evaluated the patient myself. At this time, she is awake and alert, sitting up in bed, watching television. She is friendly and cooperative, answering questions, although she appears to be confused, and is likely visually hallucinating, pointing out the television, stating that something is wrong with that. She denies being in pain, and declined an offer for food and an additional blanket at this time. I informed her that we want to keep her comfortable, and if she needs anything, to simply tell the sitter sitting outside of her room. 06/28/21 12:30 Notified by Amber REYES that [facility] will come to evaluate the patient, to see if she might be appropriate for [facility]. 06/28/21 23:11 The patient has had an uneventful day. Case discussed with Dr. Rosales, and care of the patient turned over to him at this time, for change of shift. <Amanuel Shaw - Last Filed: 06/29/21 11:05> COURSE, BEHAVIORAL HEALTH COMP - Course Re-Assessment/Re-Exam: Have assumed care from Dr Rosales after change of shift. I agree with hx and exam initially done by Dr Tan about 15 hrs ago. See his clinical documentation for details of hx mainly obtained from daughter last evening and findings on exam. I am told she became agitated later last evening. She was given ativan 1 mg PO times 2, ketamine IM about 9 hrs ago, benadryl 50 mg PO. Is reported to have than slept most of the night. Her potassium was low at 2.8, repeat this AM 3.5. Her drug screen positive for benzodiazepines, marijuana, tricyclis. Is reported to have been changed from serequel to prozac about a month ago. Reported to have increasing erratic behavior deteriorating to current condition over the past month. On reexam this AM she now is awake, does make eye contact, reponds to simple questions but speech not appropriate. She does not know where she is. Denies hallucinations. Would not be safe to go home, be by herself or able to take care of her self in a safe mannor at this time. 09:30. [facility] psych, full. [place] has not private beds, pt not suitable for a double bed with the agitation she has last evening. [facility] but patient needs to be more stable on her feet, needs to be independent with ADL's which she is not at this time. 07:30. Have assumed care from Dr Rosales once again at change of shift. Pt did not get placed yesterday. Is reported to have become a bit agitated during the night, given 1 mg ativan and 50 mg benadryl PO. sleeping at this time. She has not been started on an antipsychotic. zyprexia 5 mg PO ordered to be given when she awakens. Will reassess status when she awakens, than resume efforts for appropriate placement. 10:45. Dr Emmanuel, Psychiatrist for [facility] has accepted patient in transfer. She is awake, still appears to be hallucinating similar to yesterday. She has not shown any risk for elopement. She does not have a commital. Will send her by ground ambulance. Departure - Departure Time of Disposition: 10:52 Condition: Fair <Ronald Tan - Last Filed: 06/30/21 14:53> ED HPI GENERAL MEDICAL PROBLEM - General Source of Information: Reports: Family (Daughter) History Limitations: Reports: Altered Mental Status - History of Present Illness INITIAL COMMENTS - FREE TEXT/NARRATIVE: 40-year-old female presents to the ED in the company of her daughter who went picked her up from her home. She brought into the ED essentially for erratic behavior. She moved away from her mother who lives in [place] about a week ago and is currently living here in [place]. The mother indicates that she was started on Prozac about a month ago and has been exhibiting erratic behavior off and on for the last few weeks. For example she will have going to bed now at 7:00 in the evening suddenly awake at 8:00 in evening and 1 every take all of her pills. So therefore there is some concern that current symptom complex is related to accidental overdose. She is on Keppra and Lamictal daily, low dose that would used treat bipolar affective disorder. It is on clear at this point time whether she still on Keppra for seizure disorder. Godmother phoned the granddaughter and asked her to go check on her mom today. She was able to walk into her mother's house which is unusual as usually she has the front door locked. She found her mother sitting in her chair. When she asked her to get up as she was looking for where her cell phone might be she states she could not stand up on her own. She was very weak and limp leg. She required a good deal of assistance to walk out of the car. When she got into the truck she vomited x2 mostly dry heaves. Apparently though her daughter was able to get her to walk out and into the vehicle and proceed to the hospital. She came into the ED in a wheelchair but when she got up out of the wheelchair she went to the bed and plopped down face first on the bed and stayed in this position .She was nonverbal and she would not obey any commands at any time. She has a house here in [facility] and apparently has lived on her own most of her life. It appears that her level of function is deteriorated dramatically over the last month since starting Prozac and being discontinued from Seroquel. It is unclear at this point time who is controlling her medications and writing her scripts. Did vomit once of bilious emesis. Pupils are dilated to 8 to 9 mm but equal and symmetrical. She would make eye contact but she would not answer any questions or verbalize. No smell of alcohol on her breath. Unknown if she is fallen recently or suffered a head injury. Definitely appears to be very confused. Vital signs show no evidence of a fever. Onset: Unknown/Unsure (Apparently she has not been answering her mother's phone calls for the better part of a week. Apparently her phone has been turned off or battery was .) Duration: Other (Unknown how long this has been going on for but it appears that she has been having symptoms for the last week.) Location: Reports: Other (Confusion disorientation. Possible recurrent breakthrough seizures due to noncompliance with medication. Possible psychiatric illness or overdose. Unclear if she has been eating or drinking normally.) Quality: Reports: Other (Erratic behavior and confusional state) Severity: Severe Improves with: Reports: None Worsens with: Reports: None Context: Reports: Other (Apparently living alone here in [place] with no one looking in on her.). Denies: Activity, Exercise, Lifting, Sick Contact, Trauma Associated Symptoms: Reports: Confusion, Fever/Chills, Other (No fever on exam. No further history could be obtained from the patient and the daughter answered questions as best she could.) Past Medical History HEENT History: Reports: Allergic Rhinitis Respiratory History: Reports: Asthma Gastrointestinal History: Reports: Cholelithiasis CLAIMS COORDINATOR History: Reports: Neurological History: Reports: Head Trauma (Previous right frontal lobectomy apparently done at age 14. This was done in the hopes of reducing her seizures.), Migraines, Seizure (Traumatic brain injury potentially early in life. There is some suggestion she was dropped from a shopping cart at age 6 months and suffered a depressed skull fracture and developed seizure disorder. 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 They did this in the hopes of reducing her seizures. The history suggest that she was dropped on her head at age 6 months from a shopping cart and this started her seizure disorder.) Psychiatric History: Reports: Anxiety, Bipolar, Depression, Mood Swings, PTSD, Other (See Below) Other Psychiatric History: Borderline personality Hematologic History: Reports: Blood Transfusion(s) - Infectious Disease History Infectious Disease History: Reports: Chicken Pox - Past Surgical History GI Surgical History: Reports: Cholecystectomy Female Surgical History: Reports: Tubal Ligation, Other (See Below) Other Female Surgeries/Procedures: IUD placement (mirena) Social & Family History - Family History Family Medical History: No Pertinent Family History - Caffeine Use Caffeine Use: Reports: Soda - Living Situation & Occupation Living situation: Reports: Alone (Currently lives alone in her house here in [place].) Occupation: Other (Her daughter lives in town. The patient's mother resides in [facility]) ED ROS GENERAL - Review of Systems Review Of Systems: Unable To Obtain (Unable to obtain. Patient is nonverbal upon presentation to the ED and will not obey commands) Reason Not Obtained: Daughter offers what history she could. We have no past history ED EXAM, BEHAVIORAL HEALTH - Physical Exam Exam: See Below Exam Limited By: Altered Mental Status (Appears confused and is nonverbal and will not obey commands) General Appearance: Lethargic, Other (Mildly lethargic will make eye contact but will not verbalize or answer questions or obey commands. Temperature is 37.5 degrees with a heart rate of 102 and sinus respiratory of 16 with O2 sats are slightly low at 93% room air BP 138/86. Emesis is appreciated on her shirt) Eye Exam: Bilateral Eye: Normal Inspection, PERRL (Pupils are dilated to 8 mm bilaterally but respond slowly to light.) Throat/Mouth: Normal Inspection, Normal Lips, Normal Oropharynx, Other (Tongue appears to be mildly dry and coated) Head: Atraumatic, Normocephalic, Other (No outward signs of head or neck or facial trauma) Neck: Normal Inspection, Supple, Non-Tender, Full Range of Motion. No: Lymphadenopathy (L), Lymphadenopathy (R) Respiratory/Chest: No Respiratory Distress, Lungs Clear, Normal Breath Sounds, No Accessory Muscle Use Cardiovascular: Normal Peripheral Pulses, Regular Rate, Rhythm, No Edema, No Gallop, No Murmur, No Rub, Tachycardia (Heart rate was 101 on my assessment.) GI/Abdominal: Normal Bowel Sounds, Soft, Non-Tender, No Organomegaly, No Mass, Pelvis Stable Extremities: Normal Inspection, Normal Range of Motion, Non-Tender, No Pedal Edema Neurological: Inattentive, Other (Is nonverbal and does not obey any commands.). No: Alert, Normal Mood/Affect, CN II-XII Intact, Normal Cognition, Normal Gait, Normal Reflexes, No Motor/Sensory Deficits Psychiatric: Non-Communicative Skin Exam: Warm, Dry, Intact, Normal color, No rash #1 Interpretation EKG Date: 06/27/21 Time: 16:42 Rhythm: NSR Rate (Beats/Min): 99 Ringgold: LAD-Left Ringgold Deviation (Minimal left axis deviation -1 degree) P-Wave: Enlarged (Consider right atrial hypertrophy) QRS: Other (Decreased voltage precordial leads early R wave transition Q waves appreciated V1 to V3 consider old anteroseptal myocardial infarction) ST-T: Depressed (ST depression in leads II and aVF consider inferior wall ischemia T wave inversion V4 to V6 and lead I consider ischemia.) QT: Prolonged (Markedly prolonged) EKG Interpretation Comments: Abnormal ECG COURSE, BEHAVIORAL HEALTH COMP - Course Vital Signs: Last Vital Signs Temp 36.3 C 06/29/21 10:41 Pulse 94 06/29/21 10:41 Resp 14 06/29/21 10:41 BP 101/76 06/29/21 10:41 Pulse Ox 94 L 06/29/21 10:41 Orders, Labs, Meds: Laboratory Tests 06/27/21 06/27/21 06/27/21 Range/Units 17:10 17:10 17:10 WBC 6.89 (3.98-10.04) K/mm3 RBC 4.61 (3.98-5.22) M/mm3 Hgb 14.6 D (11.2-15.7) gm/dl Hct 42.4 (34.1-44.9) % MCV 92.0 D (79.4-94.8) fl MCH 31.7 (25.6-32.2) pg MCHC 34.4 (32.2-35.5) g/dl RDW Std Deviation 44.0 (36.4-46.3) fL Plt Count 192 (182-369) K/mm3 MPV 11.6 (9.4-12.3) fl Neut % (Auto) 59.6 (34.0-71.1) % Lymph % (Auto) 29.0 (19.3-51.7) % Calloway % (Auto) 7.7 (4.7-12.5) % Eos % (Auto) 3.2 (0.7-5.8) Baso % (Auto) 0.4 (0.1-1.2) % Neut # (Auto) 4.10 (1.56-6.13) K/mm3 Lymph # (Auto) 2.00 (1.18-3.74) K/mm3 Calloway # (Auto) 0.53 H (0.24-0.36) K/mm3 Eos # (Auto) 0.22 (0.04-0.36) K/mm3 Baso # (Auto) 0.03 (0.01-0.08) K/mm3 Sodium 139 (136-145) mEq/L Potassium 2.8 L (3.5-5.1) mEq/L Chloride 102 (98-107) mEq/L Carbon Dioxide 26 (21-32) mEq/L Anion Gap 13.8 (5-15) BUN 13 (7-18) mg/dL Creatinine 1.0 (0.55-1.02) mg/dL Est Cr Clr Drug Dosing TNP Estimated GFR (MDRD) > 60 (>60) mL/min BUN/Creatinine Ratio 13.0 L (14-18) Glucose 145 H (70-99) mg/dL Lactic Acid (0.4-2.0) mmol/L Calcium 8.9 (8.5-10.1) mg/dL Magnesium 1.9 (1.8-2.4) mg/dL Total Bilirubin 0.6 (0.2-1.0) mg/dL AST 36 (15-37) U/L ALT 30 (14-59) U/L Alkaline Phosphatase 97 (46-116) U/L CK-MB (CK-2) 3.9 H (0-3.6) ng/ml Troponin I < 0.017 (0.00-0.056) ng/mL C-Reactive Protein 0.5 (<1.0) mg/dL Total Protein 7.4 (6.4-8.2) g/dl Albumin 3.8 (3.4-5.0) g/dl Globulin 3.6 gm/dL Albumin/Globulin Ratio 1.1 (1-2) Urine Color (Yellow) Urine Appearance (Clear) Urine pH (5.0-8.0) Ur Specific Roscoe (1.005-1.030) Urine Protein (Negative) Urine Glucose (UA) (Negative) Urine Ketones (Negative) Urine Occult Blood (Negative) Urine Nitrite (Negative) Urine Bilirubin (Negative) Urine Urobilinogen (0.2-1.0) Ur Leukocyte Esterase (Negative) Urine RBC (0-5) /hpf Urine WBC (0-5) /hpf Ur Epithelial Cells (0-5) /hpf Urine Bacteria (FEW) /hpf Urine Mucus (FEW) /hpf Salicylates (2.8-20) mg/dL Urine Opiates Screen Negative (OJQOOE=450) Ur Buprenorphine Scrn Negative (CUTOFF=10) Ur Oxycodone Screen Negative (KKG1HT=302) Urine Methadone Screen Negative (OZSBQO=168) Ur Propoxyphene Screen Negative (KDVWXA=883) Acetaminophen (10-30) ug/mL Ur Barbiturates Screen Negative (MVWZSN=606) Ur Tricyclics Screen Presumptive positive H (VIDTHK=172) Ur Phencyclidine Scrn Negative (CUTOFF=25) Ur Amphetamine Screen Negative (ZNLOAC=317) U Methamphetamines Scrn Negative (VOUZTO=510) U Benzodiazepines Scrn Presumptive positive H (ILLSEC=510) U Cocaine Metab Screen Negative (VKHFCY=219) U Marijuana (THC) Screen Presumptive positive H (CUTOFF=50) Ethyl Alcohol 0.00 (0.00) gm% SARS-CoV-2 RNA (RAMIRO) (NEGATIVE) 06/27/21 06/27/21 06/27/21 Range/Units 17:10 17:10 17:10 WBC (3.98-10.04) K/mm3 RBC (3.98-5.22) M/mm3 Hgb (11.2-15.7) gm/dl Hct (34.1-44.9) % MCV (79.4-94.8) fl MCH (25.6-32.2) pg MCHC (32.2-35.5) g/dl RDW Std Deviation (36.4-46.3) fL Plt Count (182-369) K/mm3 MPV (9.4-12.3) fl Neut % (Auto) (34.0-71.1) % Lymph % (Auto) (19.3-51.7) % Calloway % (Auto) (4.7-12.5) % Eos % (Auto) (0.7-5.8) Baso % (Auto) (0.1-1.2) % Neut # (Auto) (1.56-6.13) K/mm3 Lymph # (Auto) (1.18-3.74) K/mm3 Calloway # (Auto) (0.24-0.36) K/mm3 Eos # (Auto) (0.04-0.36) K/mm3 Baso # (Auto) (0.01-0.08) K/mm3 Sodium (136-145) mEq/L Potassium (3.5-5.1) mEq/L Chloride (98-107) mEq/L Carbon Dioxide (21-32) mEq/L Anion Gap (5-15) BUN (7-18) mg/dL Creatinine (0.55-1.02) mg/dL Est Cr Clr Drug Dosing Estimated GFR (MDRD) (>60) mL/min BUN/Creatinine Ratio (14-18) Glucose (70-99) mg/dL Lactic Acid 1.7 (0.4-2.0) mmol/L Calcium (8.5-10.1) mg/dL Magnesium (1.8-2.4) mg/dL Total Bilirubin (0.2-1.0) mg/dL AST (15-37) U/L ALT (14-59) U/L Alkaline Phosphatase (46-116) U/L CK-MB (CK-2) (0-3.6) ng/ml Troponin I (0.00-0.056) ng/mL C-Reactive Protein (<1.0) mg/dL Total Protein (6.4-8.2) g/dl Albumin (3.4-5.0) g/dl Globulin gm/dL Albumin/Globulin Ratio (1-2) Urine Color Yellow (Yellow) Urine Appearance Clear (Clear) Urine pH 6.5 (5.0-8.0) Ur Specific Roscoe 1.020 (1.005-1.030) Urine Protein Negative (Negative) Urine Glucose (UA) Negative (Negative) Urine Ketones Negative (Negative) Urine Occult Blood Trace-lysed H (Negative) Urine Nitrite Negative (Negative) Urine Bilirubin Negative (Negative) Urine Urobilinogen 0.2 (0.2-1.0) Ur Leukocyte Esterase Negative (Negative) Urine RBC 0-5 (0-5) /hpf Urine WBC 0-5 (0-5) /hpf Ur Epithelial Cells 0-5 (0-5) /hpf Urine Bacteria Rare (FEW) /hpf Urine Mucus Not seen (FEW) /hpf Salicylates (2.8-20) mg/dL Urine Opiates Screen (QMWYYT=790) Ur Buprenorphine Scrn (CUTOFF=10) Ur Oxycodone Screen (NRL6BB=142) Urine Methadone Screen (NCRKPV=486) Ur Propoxyphene Screen (IIBIEZ=094) Acetaminophen 0 L (10-30) ug/mL Ur Barbiturates Screen (OOEBZJ=468) Ur Tricyclics Screen (KXHVII=499) Ur Phencyclidine Scrn (CUTOFF=25) Ur Amphetamine Screen (ZAKMBQ=268) U Methamphetamines Scrn (WBEFWA=573) U Benzodiazepines Scrn (HRVLFB=811) U Cocaine Metab Screen (IFNCNN=557) U Marijuana (THC) Screen (CUTOFF=50) Ethyl Alcohol (0.00) gm% SARS-CoV-2 RNA (RAMIRO) (NEGATIVE) 06/27/21 06/27/21 06/28/21 Range/Units 17:10 20:15 01:45 WBC (3.98-10.04) K/mm3 RBC (3.98-5.22) M/mm3 Hgb (11.2-15.7) gm/dl Hct (34.1-44.9) % MCV (79.4-94.8) fl MCH (25.6-32.2) pg MCHC (32.2-35.5) g/dl RDW Std Deviation (36.4-46.3) fL Plt Count (182-369) K/mm3 MPV (9.4-12.3) fl Neut % (Auto) (34.0-71.1) % Lymph % (Auto) (19.3-51.7) % Calloway % (Auto) (4.7-12.5) % Eos % (Auto) (0.7-5.8) Baso % (Auto) (0.1-1.2) % Neut # (Auto) (1.56-6.13) K/mm3 Lymph # (Auto) (1.18-3.74) K/mm3 Calloway # (Auto) (0.24-0.36) K/mm3 Eos # (Auto) (0.04-0.36) K/mm3 Baso # (Auto) (0.01-0.08) K/mm3 Sodium (136-145) mEq/L Potassium (3.5-5.1) mEq/L Chloride (98-107) mEq/L Carbon Dioxide (21-32) mEq/L Anion Gap (5-15) BUN (7-18) mg/dL Creatinine (0.55-1.02) mg/dL Est Cr Clr Drug Dosing Estimated GFR (MDRD) (>60) mL/min BUN/Creatinine Ratio (14-18) Glucose (70-99) mg/dL Lactic Acid (0.4-2.0) mmol/L Calcium (8.5-10.1) mg/dL Magnesium (1.8-2.4) mg/dL Total Bilirubin (0.2-1.0) mg/dL AST (15-37) U/L ALT (14-59) U/L Alkaline Phosphatase (46-116) U/L CK-MB (CK-2) (0-3.6) ng/ml Troponin I < 0.017 (0.00-0.056) ng/mL C-Reactive Protein (<1.0) mg/dL Total Protein (6.4-8.2) g/dl Albumin (3.4-5.0) g/dl Globulin gm/dL Albumin/Globulin Ratio (1-2) Urine Color (Yellow) Urine Appearance (Clear) Urine pH (5.0-8.0) Ur Specific Roscoe (1.005-1.030) Urine Protein (Negative) Urine Glucose (UA) (Negative) Urine Ketones (Negative) Urine Occult Blood (Negative) Urine Nitrite (Negative) Urine Bilirubin (Negative) Urine Urobilinogen (0.2-1.0) Ur Leukocyte Esterase (Negative) Urine RBC (0-5) /hpf Urine WBC (0-5) /hpf Ur Epithelial Cells (0-5) /hpf Urine Bacteria (FEW) /hpf Urine Mucus (FEW) /hpf Salicylates 3.2 (2.8-20) mg/dL Urine Opiates Screen (RTYZJJ=820) Ur Buprenorphine Scrn (CUTOFF=10) Ur Oxycodone Screen (BIY3GK=325) Urine Methadone Screen (ZSRLTE=114) Ur Propoxyphene Screen (ACJLHU=704) Acetaminophen (10-30) ug/mL Ur Barbiturates Screen (YPNDVU=669) Ur Tricyclics Screen (KZYLRV=741) Ur Phencyclidine Scrn (CUTOFF=25) Ur Amphetamine Screen (SJUNKZ=463) U Methamphetamines Scrn (REUXYL=253) U Benzodiazepines Scrn (RUZWZS=842) U Cocaine Metab Screen (RAGVTF=396) U Marijuana (THC) Screen (CUTOFF=50) Ethyl Alcohol (0.00) gm% SARS-CoV-2 RNA (RAMIRO) Negative (NEGATIVE) 06/28/21 Range/Units 05:32 WBC (3.98-10.04) K/mm3 RBC (3.98-5.22) M/mm3 Hgb (11.2-15.7) gm/dl Hct (34.1-44.9) % MCV (79.4-94.8) fl MCH (25.6-32.2) pg MCHC (32.2-35.5) g/dl RDW Std Deviation (36.4-46.3) fL Plt Count (182-369) K/mm3 MPV (9.4-12.3) fl Neut % (Auto) (34.0-71.1) % Lymph % (Auto) (19.3-51.7) % Calloway % (Auto) (4.7-12.5) % Eos % (Auto) (0.7-5.8) Baso % (Auto) (0.1-1.2) % Neut # (Auto) (1.56-6.13) K/mm3 Lymph # (Auto) (1.18-3.74) K/mm3 Calloway # (Auto) (0.24-0.36) K/mm3 Eos # (Auto) (0.04-0.36) K/mm3 Baso # (Auto) (0.01-0.08) K/mm3 Sodium 144 (136-145) mEq/L Potassium 3.5 (3.5-5.1) mEq/L Chloride 110 H (98-107) mEq/L Carbon Dioxide 28 (21-32) mEq/L Anion Gap 9.5 (5-15) BUN 7 (7-18) mg/dL Creatinine 0.8 (0.55-1.02) mg/dL Est Cr Clr Drug Dosing TNP Estimated GFR (MDRD) > 60 (>60) mL/min BUN/Creatinine Ratio 8.8 L (14-18) Glucose 99 (70-99) mg/dL Lactic Acid (0.4-2.0) mmol/L Calcium 8.3 L (8.5-10.1) mg/dL Magnesium (1.8-2.4) mg/dL Total Bilirubin (0.2-1.0) mg/dL AST (15-37) U/L ALT (14-59) U/L Alkaline Phosphatase (46-116) U/L CK-MB (CK-2) (0-3.6) ng/ml Troponin I (0.00-0.056) ng/mL C-Reactive Protein (<1.0) mg/dL Total Protein (6.4-8.2) g/dl Albumin (3.4-5.0) g/dl Globulin gm/dL Albumin/Globulin Ratio (1-2) Urine Color (Yellow) Urine Appearance (Clear) Urine pH (5.0-8.0) Ur Specific Roscoe (1.005-1.030) Urine Protein (Negative) Urine Glucose (UA) (Negative) Urine Ketones (Negative) Urine Occult Blood (Negative) Urine Nitrite (Negative) Urine Bilirubin (Negative) Urine Urobilinogen (0.2-1.0) Ur Leukocyte Esterase (Negative) Urine RBC (0-5) /hpf Urine WBC (0-5) /hpf Ur Epithelial Cells (0-5) /hpf Urine Bacteria (FEW) /hpf Urine Mucus (FEW) /hpf Salicylates (2.8-20) mg/dL Urine Opiates Screen (EQHOQH=701) Ur Buprenorphine Scrn (CUTOFF=10) Ur Oxycodone Screen (VNU7TE=593) Urine Methadone Screen (YMCABS=279) Ur Propoxyphene Screen (DXHZHN=848) Acetaminophen (10-30) ug/mL Ur Barbiturates Screen (OYQHMS=834) Ur Tricyclics Screen (WWRGYA=682) Ur Phencyclidine Scrn (CUTOFF=25) Ur Amphetamine Screen (JENMZM=472) U Methamphetamines Scrn (QHZACI=914) U Benzodiazepines Scrn (MLYDDM=322) U Cocaine Metab Screen (MGYLKC=525) U Marijuana (THC) Screen (CUTOFF=50) Ethyl Alcohol (0.00) gm% SARS-CoV-2 RNA (RAMIRO) (NEGATIVE) Medications Discontinued Medications Generic Name Dose Route Start Last Admin Trade Name Freq PRN Reason Stop Dose Admin Diphenhydramine HCl Confirm 06/27/21 22:39 06/27/21 22:54 Diphenhydramine 50 Mg/Ml Sdv Administered 06/27/21 22:40 Not Given Dose 50 mg .ROUTE .STK-MED ONE Diphenhydramine HCl 50 mg 06/27/21 22:55 06/27/21 22:50 Diphenhydramine 50 Mg/Ml Sdv IVPUSH 06/27/21 22:56 50 mg ONETIME ONE Administration Diphenhydramine HCl 50 mg 06/29/21 01:58 06/29/21 05:41 Diphenhydramine 50 Mg Cap PO 06/29/21 01:59 Not Given ONETIME ONE Dextrose/Sodium Chloride 1,000 mls @ 999 mls/hr 06/27/21 16:45 06/27/21 17:36 Dextrose 5%-Normal Saline IV 999 mls/hr ASDIRECTED KIANA Administration Potassium Chloride 10 meq/ 100 mls @ 100 mls/hr 06/27/21 20:00 06/28/21 02:30 Premix IV 06/28/21 01:59 100 mls/hr Q1H KIANA Administration Dextrose/Sodium Chloride 1,000 mls @ 100 mls/hr 06/27/21 20:00 06/27/21 20:20 Dextrose 5%-Normal Saline IV 100 mls/hr ASDIRECTED KIANA Administration Ketamine HCl Confirm 06/27/21 22:13 06/27/21 22:15 Ketamine 500 Mg/10 Ml Mdv Administered 06/27/21 22:14 Not Given Dose 500 mg .ROUTE .STK-MED ONE Ketamine HCl 60 mg 06/27/21 22:14 06/27/21 22:53 Ketamine 500 Mg/10 Ml Mdv IM 06/27/21 22:15 60 mg ONETIME ONE Administration Ketamine HCl 60 mg 06/27/21 22:55 06/27/21 22:56 Ketamine 500 Mg/10 Ml Mdv IM 06/27/21 22:56 60 mg ONETIME ONE Administration Levetiracetam 500 mg 06/29/21 09:00 06/29/21 09:45 Levetiracetam 500 Mg Tab PO 500 mg BID KIANA Administration Lorazepam 1 mg 06/27/21 16:47 06/27/21 17:15 Lorazepam 2 Mg/Ml Sdv IVPUSH 06/27/21 16:48 1 mg ONETIME ONE Administration Lorazepam 1 mg 06/27/21 22:01 06/27/21 22:11 Lorazepam 2 Mg/Ml Sdv IVPUSH 06/27/21 22:02 1 mg ONETIME ONE Administration Lorazepam 1 mg 06/29/21 01:57 06/29/21 02:09 Lorazepam 1 Mg Tab PO 06/29/21 01:58 1 mg ONETIME ONE Administration Metoclopramide HCl 7.5 mg 06/27/21 19:25 06/27/21 19:35 Metoclopramide 10 Mg/2 Ml Sdv IVPUSH 06/27/21 19:26 7.5 mg ONETIME ONE Administration Olanzapine 5 mg 06/29/21 07:11 06/29/21 09:45 Olanzapine 5 Mg Tab PO 06/29/21 07:12 5 mg ONETIME ONE Administration Ondansetron HCl Confirm 06/28/21 04:01 Ondansetron 4 Mg/2 Ml Sdv Administered 06/28/21 04:02 Dose 4 mg .ROUTE .STK-MED ONE Re-Assessment/Re-Exam: 40-year-old female presents to the ED in a confused state. She will make eye contact but she prefers to lie on her chest on the gurney and will not roll over for us. Her pupils are dilated to 8 mm in her equal and responsive to light. She appears to be intoxicated and acting almost catatonic. I can smell no alcohol on her breath. Apparently she moved back here from [place] about a week ago and has not had her phone on her grandmother's been unable to reach her. Therefore her daughter went to her home and found her in the state today. An uncle is supposed to be going to her home and to bring all of her medicines to the hospital so that we can see if she is potentially taken an overdose of me dication. Plan will be to CT her head. She will have chest x-ray ECG and lab work performed as well as a urinalysis and urine drug screen with a blood alcohol level. Re-Assessment/Re-Exam Date: 06/27/21 (18:10: X-ray reveals poor inspirational effort but visualized lungs are clear heart and mediastinum are normal. CT of the head has been completed it reveals right temporal encephalomalacia. No evidence of acute transcortical infarct. No mass-effect or midline shift. No extra-axial collection no acute intracranial hemorrhage basal cisterns are patent. The ventricles appear normal visualized sinuses are unremarkable with no air-fluid levels. Visualized mastoid air cells are well aerated bones and joints reveal previous right frontal craniotomy soft tissues are unremarkable.) Re-Assessment/Re-Exam Time: 19:31 (White count is normal at 6.89. The auto differential reveals 59.6% neutrophils. Hemoglobin 14.6 with hematocrit of 42.4 and platelet count of 192,000. Sodium is 139. Potassium is low at 2.8 suggesting she is not been eating as of late. Chloride 102 with a bicarb of 26. Anion gap is 13.8 BUN is 13 with a creatinine of 1.0 and a GFR of 60 indicating she is well hydrated. Glucose is 145 lactic acid 1.7. Calcium is 8.9 magnesium 1.9. Liver function is normal CK-MB is 3.9 troponin I is less than 0.017 C- reactive protein is 0.5 with a total protein is 7.4 and an albumin fraction of 3.8. Urinalysis was yellow with trace a trace of lysed occult blood but no signs of infection. The urine is presumptively positive for tricyclic antidepressants benzodiazepines and marijuana she does have a marijuana card in her wallet. Blood alcohol is 0.00) Medical Clearance: 06/27/21 19:52 after speaking with the daughter at length it appears that her mom's level of functionality has decreased substantially over the last month possibly related to medication change with discontinuation of Seroquel and adding Prozac daily to her treatment plan. She will speak in tangents and basically from what I can understand has been acting somewhat psychotic. No one is been looking in on her for the last week and mother has not been able to contact her. Therefore no one knows how much medication or when she is taking medications. It appears most likely her current symptom complex is secondary to accidental overdose of medication particularly sedative medication such as clonazepam which has a half-life of 48 hours. At this point time the plan will be to leave her in the ED since we do not have staff on the med surgery floor to act as a one-on-one and we do not have a bed in ICU. We will await till medication wears off. She will be kept on low-dose IV fluids for rehydration and she will need potassium supplementation with K rider x6 as her current potassium level is 2.8 likely from not eating for several days. Her O2 sats are around 85 to 86% on room air with her chin tucked down. Plan will be to place her on oxygen by nonrebreather at 10 L at this point time to maintain oxygen levels. I believe social service manager and likely suresh Davis needs to be come involved in her care as it appears at this point time she is not able to care for herself. Whether this improves over the next 12 to 24 hours as current medications wear off it is unclear. Her lactic acid level is 1.7 which is a gainst her having any intractable seizures recently.
[2021-06-27] MEDS ORDERED: Metoclopramide 10 MG/2 ML SDV IVPUSH ONE (19:25)
[2021-06-27] MEDS: Potassium Chloride 10 MEQ in Premix Bag 1 BAG IV SCH ×3 (20:21→23:31)
[2021-06-27] MEDS ORDERED: Ketamine 500 mg/10 ML MDV ONE (22:13)
[2021-06-27] MEDS ORDERED: Ketamine 500 mg/10 ML MDV IM ONE ×2 (22:14→22:55)
[2021-06-27] MEDS ORDERED: diphenhydrAMINE 50 MG/ML SDV ONE (22:39)
[2021-06-27] MEDS ORDERED: diphenhydrAMINE 50 MG/ML SDV IVPUSH ONE (22:55)
[2021-06-28] MEDS: Potassium Chloride 10 MEQ in Premix Bag 1 BAG IV SCH ×3 (00:24→02:30)
[2021-06-28] MEDS ORDERED: Ondansetron 4 MG/2 ML SDV ONE (04:01)
--- NOTE | 2021-06-28 07:37 | CT ---
Head CT Technique: Multiple axial sections through the brain were obtained. Intravenous contrast was not utilized. Reconstructed coronal and sagittal images were obtained. Comparison: Prior CT abdomen and pelvis study of 07/03/16. Findings: Low density is noted within the right temporal region. Prior craniotomy is also seen within this area. Findings are likely due to stable postoperative change. Ventricles along with basal cisterns and sulci over the convexities appear within normal limits for the patient's age. No other abnormal parenchymal densities are seen. No evidence of intracranial hemorrhage is seen. No midline shift or mass-effect is seen. Minimal mucosal thickening is seen within the inferior left mastoid sinuses. Nothing acute is seen within the visualized paranasal sinuses. Impression: 1. Previous surgery within the right temporal region. This finding is stable from prior CT head study. 2. Minimal mucosal thickening within the inferior mastoid sinus on the left side most likely incidental. 3. No acute abnormality is appreciated on noncontrast CT study of the brain. Diagnostic code #2
--- NOTE | 2021-06-28 07:41 | CR ---
Chest: Portable view of the chest was obtained. Comparison: No prior intracranial imaging is available. Heart size and mediastinum are within normal limits. Lungs are clear with no acute parenchymal change. Prior cervical spine surgery is noted. Impression: 1. Nothing acute is seen on portable chest x-ray. Diagnostic code #2
[2021-06-29] MEDS ORDERED: LORazepam 1 MG Tab PO ONE (01:57)
[2021-06-29] MEDS ORDERED: diphenhydrAMINE 50 MG Cap PO ONE (01:58)
[2021-06-29] MEDS ORDERED: OLANZapine 5 MG Tab PO ONE (07:11)
[2021-06-29] MEDS ORDERED: levETIRAcetam 500 MG Tab PO SCH (09:00)
[2021-06-29 10:42] VITALS: BP 101/76; PULSE 94
== END 2021-06-29 11:00 ==
LOC: JD.ED 16:18
DX: F29 Unspecified psychosis not due to a substance or known physiological condition (principal); F31.9 Bipolar disorder, unspecified; Z20.822 Contact with and (suspected) exposure to COVID-19
CPT/HCPCS: 36415; 70450; 70450-26; 71045; 71045-26; 80048; 80053; 80143; 80179; 80306; 80307; 81001; 82553; 83605; 83735; 84484; 85025; 86140; 87040; 93005; 96365; 96366; 96372; 96375; 96376; 99285-25; A9270-GY; J1200; J2060; J2765; J3480; J7042; U0002

== ENCOUNTER 2021-09-03 13:19 | Emergency (ER) | payer MEDICAID ==
[2021-09-03 14:42] VITALS: BP 125/85; PULSE 88
--- NOTE | 2021-09-03 15:16 | EDM.PDOC ---
<Katia Chakraborty - Last Filed: 09/03/21 22:24> ED HPI GENERAL MEDICAL PROBLEM - General Chief Complaint: Lower Extremity Injury/Pain Stated Complaint: PAIN IN BOTH LEGS AND FEET Time Seen by Provider: 09/03/21 14:40 - Related Data Allergies Allergy/AdvReac Type Severity Reaction Status Date / Time cefazolin sodium [From Anc] Allergy Intermediate Rash Verified 09/04/21 11:36 Penicillins Allergy Intermediate Rash Verified 09/04/21 11:36 Home Meds: Home Meds Montelukast [Singulair] 10 mg PO DAILY 02/22/14 [History] levETIRAcetam [Keppra] 100 mg PO BID 09/10/14 [History] ClonazePAM [KlonoPIN] 2 mg PO BEDTIME 04/15/16 [History] Benztropine [Cogentin] 2 mg PO BEDTIME 06/16/19 [History] oxyCODONE HCl/Acetaminophen [Oxycodone-Acetaminophen 10-300] 1 tab PO Q6H PRN 06/16/19 [History] Albuterol Sulfate [Proair Hfa] 1 puff INH DAILY PRN 06/20/20 [History] Celecoxib [CeleBREX] 200 mg PO DAILY 06/27/21 [History] Lubiprostone [Amitiza] 24 mcg PO BIDMEALS 06/27/21 [History] levETIRAcetam [Keppra] 250 mg PO BEDTIME 06/27/21 [History] Gabapentin [Neurontin] 100 mg PO Q8H PRN #18 cap 09/03/21 [Rx] Course - Re-Assessments/Exams Free Text/Narrative Re-Assessment/Exam: 09/03/21 22:24 Care assumed from KEERTHI Dickens. Patient has completed potassium infusion. She continues to complain of "pain "due to [id number] in her lower extremities. I will give her dose of gabapentin here and send prescription for gabapentin 100 mg 3 times daily until she is seen by her primary care in 6 days. She is in agreement with this plan. Discharge instructions as documented. Departure - Departure Disposition: Home, Self-Care 01 Condition: Good Clinical Impression: Hypokalemia Peripheral neuropathy Qualifiers: Peripheral neuropathy type: mononeuropathy, unspecified Qualified Code(s): G58.9 - Mononeuropathy, unspecified - Discharge Information *PRESCRIPTION DRUG MONITORING PROGRAM REVIEWED*: Yes *COPY OF PRESCRIPTION DRUG MONITORING REPORT IN PATIENT ELIGIO: No Prescriptions: Gabapentin [Neurontin] 100 mg PO Q8H PRN #18 cap PRN Reason: Pain Instructions: Hypokalemia Referrals: Rachna Guzmán BLASTING WORKER [Primary Care Provider] - Forms: ED Department Discharge Additional Instructions: Increase your intake of potassium rich foods such as orange juice, potatoes, bananas. Take gabapentin as needed for pins and needle sensation to your feet. Keep your appointment as scheduled with primary care to have your blood work rechecked. Return to ER as needed. <Papito Gustafson - Last Filed: 09/07/21 20:17> ED HPI GENERAL MEDICAL PROBLEM - General Source of Information: Reports: Patient History Limitations: Reports: No Limitations, Other (ED vital signs reveal a temp of 97.4, pulse of 88, respiratory rate of 18, blood pressure 125/85, pulse ox 96% on room air) - History of Present Illness INITIAL COMMENTS - FREE TEXT/NARRATIVE: 40-year-old female presents the emergency department today with complaints of pain noted to her bilateral lower legs from the knees down to her toes. Patient states this has been ongoing since August 22, 2021. She describes the pain as pins and needles feeling to her legs and feet. She states increased pain with any touch or ambulation. She denies any recent fever, chills, nausea, vomiting, diarrhea or urinary symptoms. She denies any other infective type symptoms. She states she has never had anything like this in the past. She denies any issues with her bowels or bladder. States she has been taking Tylenol for the discomfort however this is not helped much. Patient states she has not seen her primary care provider for this problem as she states she is waiting to see how bad it would get. She states she does have an appointment scheduled for September 09, 2020 however she states the pain has become so severe she could not wait until that appointment date. Bilateral Lower Leg Pain Score (Numeric/FACES): 10 Past Medical History HEENT History: Reports: Allergic Rhinitis Respiratory History: Reports: Asthma Gastrointestinal History: Reports: Cholelithiasis TRANSITION OF CARE SPECIALIST History: Reports: Neurological History: Reports: Head Trauma, Migraines, Seizure, Other (See Below) Psychiatric History: Reports: Anxiety, Bipolar, Depression, Mood Swings, PTSD, Other (See Below) Other Psychiatric History: Borderline personality Hematologic History: Reports: Blood Transfusion(s) - Infectious Disease History Infectious Disease History: Reports: Chicken Pox, Novel Coronavirus - Past Surgical History GI Surgical History: Reports: Cholecystectomy Female Surgical History: Reports: Tubal Ligation, Other (See Below) Other Female Surgeries/Procedures: IUD placement (mirena) Neurological Surgical History: Reports: Other (See Below) Other Neurological Surgeries/Procedures: 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 The patient's mother resides in [facility]) Review of Systems - Review of Systems Review Of Systems: Comprehensive ROS is negative, except as noted in HPI. ED EXAM, GENERAL - Physical Exam Exam: See Below Exam Limited By: No Limitations General Appearance: Alert, WD/WN, Anxious Ears: Normal External Exam, Hearing Grossly Normal Nose: Normal Inspection Throat/Mouth: Normal Inspection, Normal Lips, Normal Voice, No Airway Compromise Head: Atraumatic Neck: Normal Inspection, Supple Respiratory/Chest: No Respiratory Distress, No Accessory Muscle Use Cardiovascular: Normal Peripheral Pulses, Regular Rate, Rhythm, No Edema Peripheral Pulses: 2+: Dorsalis Pedis (L), Dorsalis Pedis (R) GI/Abdominal: No Distention (Female) Exam: Deferred Rectal (Female) Exam: Deferred Back Exam: Normal Inspection Extremities: Normal Inspection, Normal Range of Motion, No Pedal Edema, Normal Capillary Refill. No: Non-Tender (Patient bilateral lower extremities are extremely tender with any normal palpation) Neurological: Alert, Oriented, Normal Cognition Psychiatric: Anxious Skin Exam: Warm, Dry, Intact, Normal Color, No Rash Lymphatic: No Adenopathy Course - Vital Signs Text/Narrative:: Stated above, patient presents with pain and [id number] sensation noted to her bilateral lower legs and feet that has been ongoing for the past couple of weeks. Physical exam is essentially unremarkable. Pedal pulses are 2+ and palpable. Patient has positive CMS noted to her bilateral lower extremities. Patient is extremely sensitive to any palpation to her lower extremities stating that it causes her severe discomfort during my examination. I do not appreciate any erythema or edema. Will obtain lab studies to include a CBC, CMP and magnesium level. Last Recorded V/S: Last Vital Signs Temp 97.4 F 09/03/21 14:38 Pulse 88 09/03/21 14:38 Resp 18 09/03/21 14:38 BP 125/85 09/03/21 14:38 Pulse Ox 96 09/03/21 14:38 - Orders/Labs/Meds Labs: Laboratory Tests 09/03/21 09/03/21 Range/Units 15:22 15:22 WBC 6.53 (3.98-10.04) K/mm3 RBC 4.62 (3.98-5.22) M/mm3 Hgb 14.9 (11.2-15.7) gm/dl Hct 44.3 (34.1-44.9) % MCV 95.9 H D (79.4-94.8) fl MCH 32.3 H (25.6-32.2) pg MCHC 33.6 (32.2-35.5) g/dl RDW Std Deviation 46.8 H (36.4-46.3) fL Plt Count 300 D (182-369) K/mm3 MPV 10.5 (9.4-12.3) fl Neut % (Auto) 49.0 (34.0-71.1) % Lymph % (Auto) 38.4 (19.3-51.7) % [place] % (Auto) 9.0 (4.7-12.5) % Eos % (Auto) 3.1 (0.7-5.8) Baso % (Auto) 0.5 (0.1-1.2) % Neut # (Auto) 3.20 (1.56-6.13) K/mm3 Lymph # (Auto) 2.51 (1.18-3.74) K/mm3 [place] # (Auto) 0.59 H (0.24-0.36) K/mm3 Eos # (Auto) 0.20 (0.04-0.36) K/mm3 Baso # (Auto) 0.03 (0.01-0.08) K/mm3 Sodium 142 (136-145) mEq/L Potassium 2.6 L (3.5-5.1) mEq/L Chloride 101 (98-107) mEq/L Carbon Dioxide 33 H (21-32) mEq/L Anion Gap 10.6 (5-15) BUN 6 L (7-18) mg/dL Creatinine 0.7 (0.55-1.02) mg/dL Est Cr Clr Drug Dosing 89.96 mL/min Estimated GFR (MDRD) > 60 (>60) mL/min BUN/Creatinine Ratio 8.6 L (14-18) Glucose 92 (70-99) mg/dL Calcium 9.3 (8.5-10.1) mg/dL Magnesium 2.2 (1.8-2.4) mg/dL Total Bilirubin 0.6 (0.2-1.0) mg/dL AST 23 (15-37) U/L ALT 35 (14-59) U/L Alkaline Phosphatase 77 (46-116) U/L Total Protein 7.0 (6.4-8.2) g/dl Albumin 3.6 (3.4-5.0) g/dl Globulin 3.4 gm/dL Albumin/Globulin Ratio 1.1 (1-2) Meds: Medications Discontinued Medications Generic Name Dose Route Start Last Admin Trade Name Freq PRN Reason Stop Dose Admin Gabapentin 100 mg 09/03/21 22:21 09/03/21 22:29 Gabapentin 100 Mg Cap PO 09/03/21 22:22 100 mg ONETIME ONE Administration Potassium Chloride 10 meq/ 100 mls @ 100 mls/hr 09/03/21 16:15 09/03/21 21:06 Premix IV 09/03/21 20:14 100 mls/hr Q1H KIANA Administration Sodium Chloride 1,000 mls @ 75 mls/hr 09/03/21 17:16 09/03/21 17:28 Normal Saline IV 09/04/21 06:35 75 mls/hr NOW STA Administration Potassium Chloride 40 meq 09/03/21 16:08 09/03/21 17:08 Potassium Chloride 20 Meq Tab.Er PO 09/03/21 16:09 40 meq ONETIME ONE Administration - Re-Assessments/Exams Free Text/Narrative Re-Assessment/Exam: 09/03/21 16:10 Hematology is essentially unremarkable, chemistry reveals sodium of 142, potassium 2.6, carbon dioxide 33, anion gap 10.6, BUN 6, creatinine 0.7, magnesium 2.2 Ordered for the patient received 40 mEq potassium IV as well as 40 mEq of potassium p.o. Departure - Departure Time of Disposition: 22:20 Sepsis Event Note (ED) - Evaluation Sepsis Screening Result: No Definite Risk
[2021-09-03] MEDS ORDERED: Potassium Chloride 20 MEQ Tab.ER PO ONE (16:08)
[2021-09-03] MEDS: Potassium Chloride 10 MEQ in Premix Bag 1 BAG IV SCH ×4 (17:09→21:06)
[2021-09-03] MEDS ORDERED: Sodium Chloride 0.9% 1,000 ML IV STA (17:16)
[2021-09-03] MEDS ORDERED: Gabapentin 100 MG Cap PO ONE (22:21)
== END 2021-09-03 22:20 | disposition home or self-care (01) ==
LOC: JD.ED 13:19
DX: G58.9 Mononeuropathy, unspecified (principal); E87.6 Hypokalemia; J45.909 Unspecified asthma, uncomplicated; Z88.1 Allergy status to other antibiotic agents; Z88.0 Allergy status to penicillin; Z79.899 Other long term (current) drug therapy
CPT/HCPCS: 36415; 80053; 83735; 85025; 96365; 96366; 99283; A9270; J3480; J7030

== ENCOUNTER 2022-05-08 15:45 | Emergency (ER) | payer MEDICAID ==
[2022-05-08] MEDS ORDERED: HYDROmorphone 0.5 MG/0.5 ML Syringe IVPUSH ONE ×2 (16:12→17:13)
[2022-05-08] MEDS ORDERED: Metoclopramide 10 MG/2 ML SDV IVPUSH ONE (16:12)
[2022-05-08] MEDS ORDERED: Dextrose 5%-0.9% NaCl 1,000 ML IV SCH (16:15)
[2022-05-08 17:12] LABS: ESTIMATED GFR 81 mL/min (>60)
[2022-05-08 18:48] VITALS: BP 95/63; PULSE 60
== END 2022-05-08 18:49 | disposition home or self-care (01) ==
LOC: JD.ED 15:45
DX: N23 Unspecified renal colic (principal); F41.9 Anxiety disorder, unspecified; F32.A Depression, unspecified; Z79.899 Other long term (current) drug therapy; Z88.0 Allergy status to penicillin; Z88.1 Allergy status to other antibiotic agents
CPT/HCPCS: 36415; 74176; 80053; 81001; 85025; 86140; 96361; 96374; 96375; 96376; 99284; J1170; J2765; J7042

== ENCOUNTER 2022-05-27 21:30 | Emergency (ER) | payer MEDICAID ==
[2022-05-27 21:45] VITALS: BP 145/92; PULSE 50
[2022-05-27] MEDS ORDERED: Ondansetron 4 MG/2 ML SDV IVPUSH ONE (21:47)
[2022-05-27] MEDS ORDERED: Tamsulosin 0.4 MG Cap.ER PO STA (21:47)
[2022-05-27] MEDS ORDERED: HYDROmorphone 1 MG/ML Syringe IVPUSH STA (21:47)
[2022-05-27] MEDS ORDERED: Sodium Chloride 0.9% 1,000 ML IV SCH (22:00)
[2022-05-27] MEDS ORDERED: HYDROmorphone 0.5 MG/0.5 ML Syringe IVPUSH ONE (23:04)
== END 2022-05-28 01:30 | disposition home or self-care (01) ==
LOC: JD.ED 21:30
DX: N20.0 Calculus of kidney (principal); Z88.1 Allergy status to other antibiotic agents; Z88.0 Allergy status to penicillin; Z79.899 Other long term (current) drug therapy; Z86.16 Personal history of COVID-19; Z90.49 Acquired absence of other specified parts of digestive tract
CPT/HCPCS: 36415; 74176; 80053; 81001; 85025; 96361; 96374; 96375; 96376; 99284; A9270; J1170; J2405; J7030